=== PATIENT | female | born 1990 | race Caucasian/White ===

== ENCOUNTER 2018-06-20 22:23 | Emergency (ER) | payer OTHER ==
[~2018-06-20] VITALS: Ht 175.3 cm; Wt 68.0 kg
[~2018-06-20 22:23] MED LIST: DOXY100 PO; HYDACE5 PO; IBUP800 PO; OXYACE5T PO; Verotin-Gr Cap1 EACH PO
[2018-06-21 00:10] LABS: Source, Urine Clean Catch
[2018-06-21 00:25] LABS: Bilirubin, Urine Neg (Neg); Blood, Urine Neg (Neg); Glucose Qualitative, Urine Neg (Neg); Ketones, Urine Neg (Neg); Leukocyte Esterase, Urine Neg (Neg); Nitrite, Urine Neg (Neg); Protein, Urine Neg (Neg); Specific Gravity, Urine 1.005 (1.003-1.022); Urobilinogen, Urine NORM (Normal)
[2018-06-21 00:34] LABS: Appearance, Urine Clear (Clear); Color, Urine Pale Yellow (P-Yellow)
== END 2018-06-21 00:59 | disposition home or self-care (01) ==
LOC: ER 22:23
PROVIDERS: Emergency Medicine
DX: G89.29 Other chronic pain (principal); R10.2 Pelvic and perineal pain; R30.0 Dysuria; Z87.891 Personal history of nicotine dependence
CPT/HCPCS: 81003; 81025; 99284

== ENCOUNTER → 2018-06-22 | Outpatient (CLI) | payer OTHER ==
[2018-06-22 16:32] LABS: BASOPHILS ABSOLUTE AUTO 0.04 K/mm3 (0.00-0.23); BASOPHILS PERCENT AUTO 1 % (0-2); EOSINOPHILS ABSOLUTE AUTO 0.06 K/mm3 (0.00-0.68); EOSINOPHILS PERCENT AUTO 1 % (0-6); Hematocrit 41.2 % (33.0-51.0); Hemoglobin 13.9 g/dL (11.5-16.0); IMMATURE GRAN ABSOLUTE AUTO 0.01 K/mm3 (0.00-0.10); IMMATURE GRAN PERCENT AUTO 0 % (0-1); LYMPHOCYTES ABSOLUTE AUTO 2.36 K/mm3 (0.84-5.20); LYMPHOCYTES PERCENT AUTO 30 % (21-46); MONOCYTES ABSOLUTE AUTO 0.62 K/mm3 (0.16-1.47); MONOCYTES PERCENT AUTO 8 % (4-13); Mean Corpuscular HGB 29.6 pg (26.0-34.0); Mean Corpuscular HGB Conc 33.7 g/dL (31.5-36.5); Mean Corpuscular Volume 88 fL (80-100); Mean Platelet Volume 11.8 fL (9.1-12.4); NEUTROPHILS ABSOLUTE AUTO 4.74 K/mm3 (1.96-9.15); NEUTROPHILS PERCENT AUTO 61 % (41-73); Platelet Count 229 K/mm3 (150-400); RDW Coefficient Variation 12.4 % (11.7-14.2); RDW Standard Deviation 40.1 fL (35.1-46.3); Red Blood Cell Count 4.69 M/mm3 (3.80-5.20); White Blood Cell Count 7.83 K/mm3 (4.00-11.30)
[2018-06-22 16:53] LABS: Anion Gap 12 mmol/L (6-16); Blood Urea Nitrogen 15 mg/dL (8-24); Bun/Creatinine Ratio 15.5 (12.0-20.0); CO2, Blood 24 mmol/L (21-32); Calcium, Blood 8.9 mg/dL (8.5-10.1); Chloride, Blood 101 mmol/L (98-108); Creatinine, Blood 0.97 mg/dL (0.40-1.00); Glomerular Filtration Rate >60 (60-); Glucose, Blood 97 mg/dL (70-99); Potassium, Blood 3.9 mmol/L (3.5-5.5); Sodium, Blood 137 mmol/L (136-145); Thyroid Stimulating Hormone 0.975 uIU/mL (0.360-4.800)
== END ==
LOC: LAB EV 16:29 → LAB SHORT 16:29
PROVIDERS: Physician Assistant Surgical
DX: R10.32 Left lower quadrant pain (principal)
CPT/HCPCS: 80048; 84443; 85025; 87070; 87205

== ENCOUNTER 2019-03-30 11:30 | Inpatient (IN) | payer OTHER ==
[~2019-03-30] VITALS: Ht 175.3 cm; Wt 85.7 kg
[2019-04-01] MEDS ORDERED: PRENATAL TABLE1 EAC2 PO (10:26)
[2019-04-01 10:32] LABS: BASOPHILS ABSOLUTE AUTO 0.03 K/mm3 (0.00-0.23); BASOPHILS PERCENT AUTO 0 % (0-2); EOSINOPHILS ABSOLUTE AUTO 0.08 K/mm3 (0.00-0.68); EOSINOPHILS PERCENT AUTO 1 % (0-6); Hematocrit 36.5 % (33.0-51.0); Hemoglobin 12.2 g/dL (11.5-16.0); IMMATURE GRAN PERCENT AUTO 1 % (0-1); LYMPHOCYTES ABSOLUTE AUTO 1.92 K/mm3 (0.84-5.20); LYMPHOCYTES PERCENT AUTO 19 % (21-46); MONOCYTES ABSOLUTE AUTO 0.86 K/mm3 (0.16-1.47); MONOCYTES PERCENT AUTO 8 % (4-13); Mean Corpuscular HGB 30.7 pg (26.0-34.0); Mean Corpuscular HGB Conc 33.4 g/dL (31.5-36.5); Mean Corpuscular Volume 92 fL (80-100); Mean Platelet Volume 11.9 fL (9.1-12.4); NEUTROPHILS ABSOLUTE AUTO 7.37 K/mm3 (1.96-9.15); NEUTROPHILS PERCENT AUTO 71 % (41-73); Platelet Count 315 K/mm3 (150-400); RDW Coefficient Variation 11.9 % (11.7-14.2); RDW Standard Deviation 40.8 fL (35.1-46.3); Red Blood Cell Count 3.97 M/mm3 (3.80-5.20); White Blood Cell Count 10.36 K/mm3 (4.00-11.30)
--- NOTE | 2019-04-02 13:18 | NUR ---
[facility]
--- NOTE | 2019-04-02 13:45 | NUR ---
DR MYERS HELD UP IN A CASE IN THE SUR[facility]ERY [facility]. DR GARCIA NOTIFIED ME THAT THE CASE IS DELAYED FOR NOW.
[2019-04-02 17:48] LABS: PO2 Cord - Arterial 21.5 mmHg (16-20); pH Cord - Arterial 7.42 (7.28-7.35)
--- NOTE | 2019-04-02 17:48 | NUR ---
04/02/19 [address] [place] turn[place]istephanie Pereira VIABLE FEMALE DELIVERED VIA REPEAT SECTION AT 1725. APGARS 9/9. WT 7-6 LBS/3335 GMS. 20.5 IN LONG. HEAD 13 IN. CHEST 13 IN. CORD BLOOD WAS GIVEN TO ALEXEY PARIS TO SEND TO LAB. CORD SEGMENT GIVEN TO [facility] FOR CORD GASSES PER DR. MYERS
[2019-04-02 17:50] LABS: PCO2 Cord - Venous 32.1 mmHg (40-50); PO2 Cord - Venous 20.8 mmHg (28-32); pH Umbilical Cord - Venous 7.44 (7.26-7.35)
--- NOTE | 2019-04-02 19:12 | NUR ---
REPORT TO LUIS BAILON RN
[2019-04-03 05:31] LABS: BASOPHILS ABSOLUTE AUTO 0.02 K/mm3 (0.00-0.23); BASOPHILS PERCENT AUTO 0 % (0-2); EOSINOPHILS ABSOLUTE AUTO 0.04 K/mm3 (0.00-0.68); EOSINOPHILS PERCENT AUTO 0 % (0-6); Hematocrit 30.5 % (33.0-51.0); Hemoglobin 10.2 g/dL (11.5-16.0); IMMATURE GRAN ABSOLUTE AUTO 0.07 K/mm3 (0.00-0.10); IMMATURE GRAN PERCENT AUTO 1 % (0-1); LYMPHOCYTES ABSOLUTE AUTO 1.66 K/mm3 (0.84-5.20); LYMPHOCYTES PERCENT AUTO 14 % (21-46); MONOCYTES ABSOLUTE AUTO 0.48 K/mm3 (0.16-1.47); MONOCYTES PERCENT AUTO 4 % (4-13); Mean Corpuscular HGB 30.6 pg (26.0-34.0); Mean Corpuscular HGB Conc 33.4 g/dL (31.5-36.5); Mean Corpuscular Volume 92 fL (80-100); Mean Platelet Volume 11.8 fL (9.1-12.4); NEUTROPHILS ABSOLUTE AUTO 9.43 K/mm3 (1.96-9.15); NEUTROPHILS PERCENT AUTO 81 % (41-73); Platelet Count 296 K/mm3 (150-400); RDW Coefficient Variation 11.9 % (11.7-14.2); RDW Standard Deviation 39.9 fL (35.1-46.3); Red Blood Cell Count 3.33 M/mm3 (3.80-5.20)
--- NOTE | 2019-04-03 21:59 | NUR ---
PAS DISCONTINUED. REPLACED 5 SATURATED STERI STRIPS. RIGHT SIDE OOZES SMALL AMOUNT OF SEROSANGUINEOUS FLUID. INCISION APPROXIMATED, STERI STRIPS INTACT.
--- NOTE | 2019-04-04 02:30 | NUR ---
FIRST VOID AFTER CATHETER REMOVAL. VOIDING WITHOUT DIFFICULTIES.
--- NOTE | 2019-04-04 08:30 | NUR ---
MOM IN BED RESTING, PLANNING TO DC HOME TOMORROW. DOING WELL.
[2019-04-04] MEDS ORDERED: IBUP800 (14:55)
--- NOTE | 2019-04-04 16:50 | NUR ---
REPORT TO ALEXEY INGRAM. NO ACUTE CHANGES.
--- NOTE | 2019-04-05 11:57 | NUR ---
PT DISCHARGED TO HOME. NO QUESTIONS OR CONCERNS AT THIS TIME. BANDS MATCHED. DISCHARGE INSTRUCTIONS GIVEN FOR MOM AND BABY. PRESCRIPTION GIVEN TO PT.
--- NOTE | 2019-04-13 14:52 | NUR ---
LATE ENTRY OR SURGICAL CHECKLIST COMPLETED PER VERBAL REPORT FROM RAINA VANCE RN ALL COMPLETED PRIOR TO C/S
== END 2019-04-05 12:40 | disposition home or self-care (01) | DRG 788 ==
LOC: BC 04-02 12:14
PROVIDERS: Nurse Practitioner Obstetrics & Gynecology; ADMIT Obstetrics & Gynecology
PROC: 10D00Z1 Extraction of Products of Conception, Low, Open Approach (ICD-10-PCS; principal; 2019-04-02 14:00)
DX: O34.211 Maternal care for low transverse scar from previous cesarean delivery (principal); Z3A.39 39 weeks gestation of pregnancy; Z37.0 Single live birth
CPT/HCPCS: 36415; 82803; 85025; 86850; 86900; 86901; J0690; J0694; J1885; J2590; J2765; J7120

== ENCOUNTER → 2021-12-25 | Outpatient (CLI) | payer OTHER ==
[~2021-12-25] MED LIST changes: +IBUP800; +PRENATAL TABLE1 EAC2 PO
== END | disposition home or self-care (01) ==
LOC: LAB SHORT 12:57 → LAB 12:57
DX: N39.0 Urinary tract infection, site not specified (principal)
CPT/HCPCS: 87086